=== PATIENT | male | born 1940 | race Caucasian/White ===

== ENCOUNTER 2017-04-29 07:12 | Outpatient (CLI) | payer MEDICARE, BC ==
[2017-04-29 08:09] LABS: ALT (SGPT) 21 U/L (8-55); AST (SGOT) 22 U/L (5-34); Alkaline Phosphatase 62 U/L (40-150); Anion Gap 13 mmol/L (10-20); BUN (Urea Nitrogen) 19 mg/dL (8.4-25.7); Bilirubin, Total 0.7 mg/dL (0.2-1.2); Calc. Creatinine Clearance 0 mL/min (70-130); Calcium 9.5 mg/dL (7.8-10.44); Carbon Dioxide 26 mmol/L (23-31); Cardiac Risk 4.6 (Less than 4.5); Chloride 107 mmol/L (98-107); Cholesterol 194 mg/dl (< 200 Desired); Estimated GFR-MDRD 58; Glucose 108 mg/dL (83-110); HDL Cholesterol 42 mg/dL (>60 Neg Risk); LDL Cholesterol, Calculated 121 mg/dL; Potassium 4.1 mmol/L (3.5-5.1); Sodium 142 mmol/L (136-145); Triglycerides 155 mg/dL (Less than 150)
== END 2017-04-29 07:13 | disposition home or self-care (01) ==
LOC: MADLAB 07:12
PROVIDERS: ATTEND Urology
DX: N41.0 Acute prostatitis (principal); E78.00 Pure hypercholesterolemia, unspecified
CPT/HCPCS: 36415; 80053; 80061; G0103

== ENCOUNTER 2020-06-22 12:39 | Outpatient (CLI) | payer MEDICARE, BC ==
--- NOTE | 2020-06-22 13:00 | CT ---
CT BRAIN WITHOUT CONTRAST: HISTORY:Headache FINDINGS: There are foci of decreased attenuation in the periventricular white matter, consistent with chronic small vessel ischemic disease. No evidence of acute infarct, hemorrhage, midline shift or abnormal extra-axial fluid collections is seen. The ventricular size is appropriate and the basilar cisterns are patent. The bony calvarium is intact. There is mucosal disease in the paranasal sinuses. IMPRESSION: 1. No CT evidence of acute intracranial process. 2. Paranasal sinus disease.
--- NOTE | 2020-06-22 13:30 | CT ---
CT Cervical Spine WO Con History: Neck pain without trauma Comparison: None. Findings: The visualized mandible is intact. Mucosal retention cyst of the right and left maxillary s inuses. Pterygoid plates are intact. Mastoids are relatively clear. Mild calcific plaque of both carotid bulbs. Lung apices are clear. Thyroid is unremarkable. No cervical adenopathy. No acute fracture or malalignment. Levels are as follows: C2/C3: Mild disc desiccation and height loss. Small circumferential disc osteophyte complex. Moderate right and mild left neural foraminal narrowing. C3/C4: Advanced degenerative disc space disease with large circumferential disc osteophyte complex. 2 mm retrolisthesis. The spinal canal is narrowed to approximately 6 mm. Severe right and moderate to severe left neural foraminal narrowing. C4/C5: Moderate disc desiccation and height loss. Large circumferential disc osteophyte complex. Face t joints are relatively intact. Spinal canal measures approximately 6 mm. Severe left and moderate to severe right neural foraminal narrowing. C5/C6: Moderate circumferential disc space height loss and associated disc osteophyte complex greates t in the right paracentral and left lateral recess. Spinal canal measures approximately 7 mm. Moderate to severe left and moderate right neural foraminal narrowing. C6/C7: High-grade degenerative disc space height loss. Large circumferential disc osteophyte complex. Facet joints are normal. Moderate to severe left and moderate right neural foraminal narrowing. C7/T1: Normal disc height. No neural foraminal or spinal canal narrowing. Bridging anterior osteophytes from C5-T1. No acute fracture of the cervical spine. Transverse processes are intact. Spinous processes are intac t. Extensive mucosal thickening and debris within the sphenoid sinus with associated osteitis. Impression: Advanced spondylosis throughout the cervical spine which is predominantly disc degenerati on in nature with relatively maintained facet joints. Multilevel high-grade neural foraminal narrowing and moderate spinal canal narrowing.
== END 2020-06-22 12:40 | disposition home or self-care (01) ==
LOC: MADCT 12:39
PROVIDERS: ATTEND Family Medicine
DX: R51.9 Headache, unspecified (principal); M54.2 Cervicalgia; M47.812 Spondylosis without myelopathy or radiculopathy, cervical region; M50.31 Other cervical disc degeneration, high cervical region; M48.02 Spinal stenosis, cervical region; J34.89 Other specified disorders of nose and nasal sinuses
CPT/HCPCS: 70450; 72125

== ENCOUNTER 2024-03-10 15:53 | Outpatient (CLI) | payer MEDICARE, BC | END 2024-03-10 15:54 | disposition home or self-care (01) | LOC: MADRAD 15:53 | PROVIDERS: ATTEND Nurse Practitioner Family | DX: R06.02 Shortness of breath (principal) | CPT/HCPCS: 71046 ==

== ENCOUNTER 2025-06-02 19:40 | Emergency (ER) | payer MEDICARE, BC ==
[2025-06-02 20:35] LABS: #Basophils 0.1 thou/uL (0.0-0.2); #Eosinophils 0.2 thou/uL (0.0-0.7); #Lymphocytes 1.0 thou/uL (1.20-3.40); #Monocytes 0.5 thou/uL (0.11-0.59); #Neutrophils 9.8 thou/uL (1.40-6.50); %Basophils 1.1 % (0.0-1.0); %Eosinophils 1.8 % (0.0-10.0); %Lymphocytes 8.3 % (21.0-51.0); %Monocytes 4.2 % (0.0-10.0); %Neutrophils 84.7 % (42.0-75.0); Hematocrit 38.6 % (42.0-52.0); Hemoglobin 12.1 g/dL (14.0-18.0); Mean Corpuscular Hemoglobin 28.4 pg (27.0-31.0); Mean Corpuscular Volume 90.8 fl (78.0-98.0); Platelet Count 173 10x3/uL (130-400); Red Blood Cell (RBC) Count 4.26 mill/uL (4.70-6.10); White Blood Cell (WBC) Count 11.5 10x3/uL (4.8-10.8)
[2025-06-02 20:55] LABS: ALT (SGPT) 10 U/L (Less than 45); AST (SGOT) 19 U/L (11-34); Albumin 4.0 g/dL (3.1-4.5); Alkaline Phosphatase 80 U/L (40-110); Anion Gap 16 mmol/L (10-20); BUN (Urea Nitrogen) 20 mg/dL (8.4-25.7); Bilirubin, Total 0.4 mg/dL (0.3-1.2); Calc. Creatinine Clearance 0 mL/min (70-130); Calcium 8.6 mg/dL (7.8-10.44); Carbon Dioxide 22 mmol/L (23-31); Chloride 108 mmol/L (98-107); Globulin 2.3 g/dL (2.4-3.5); Glucose 126 mg/dL (83-110); Lipase 34 U/L (8-78); Potassium 4.8 mmol/L (3.5-5.1); Sodium 141 mmol/L (136-145); Troponin I Less than 0.010 ng/mL (< 0.028)
== END 2025-06-02 21:41 | disposition home or self-care (01) ==
LOC: MADERS 19:40
DX: J01.90 Acute sinusitis, unspecified (principal); B96.89 Other specified bacterial agents as the cause of diseases classified elsewhere; Z87.891 Personal history of nicotine dependence
CPT/HCPCS: 71046; 80053; 83605; 83690; 84484; 85025; 87040; 87428; 93005; 94760

== ENCOUNTER 2025-07-01 06:44 | Outpatient (CLI) | payer MEDICARE, BC ==
[2025-07-01 07:21] LABS: ALT (SGPT) 10 U/L (Less than 45); AST (SGOT) 17 U/L (11-34); Albumin 4.0 g/dL (3.1-4.5); Alkaline Phosphatase 75 U/L (40-110); Anion Gap 15 mmol/L (10-20); BUN (Urea Nitrogen) 13 mg/dL (8.4-25.7); Bilirubin, Total 0.4 mg/dL (0.3-1.2); Calc. Creatinine Clearance 0 mL/min (70-130); Calcium 9.3 mg/dL (7.8-10.44); Carbon Dioxide 25 mmol/L (23-31); Cardiac Risk 3.5 (Less than 4.5); Chloride 108 mmol/L (98-107); Cholesterol 166 mg/dl (< 200 Desired); Globulin 2.6 g/dL (2.4-3.5); Glucose 105 mg/dL (83-110); HDL Cholesterol 48 mg/dL (>60 Neg Risk); LDL Cholesterol, Calculated 98 mg/dL; Potassium 4.5 mmol/L (3.5-5.1); Sodium 143 mmol/L (136-145); Triglycerides 102 mg/dL (Less than 150)
[2025-07-01 08:23] LABS: Hematocrit 39.5 % (42.0-52.0); Hemoglobin 11.9 g/dL (14.0-18.0); Mean Corpuscular Hemoglobin 27.6 pg (27.0-31.0); Mean Corpuscular Volume 91.6 fl (78.0-98.0); Platelet Count 214 10x3/uL (130-400); Red Blood Cell (RBC) Count 4.31 mill/uL (4.70-6.10); White Blood Cell (WBC) Count 5.5 10x3/uL (4.8-10.8)
[2025-07-01 08:55] LABS: MDiff Complete? YES; Manual Diff?? YES; Platelet Adequacy Comment Appears Adequate
[2025-07-01 13:13] LABS: Iron 40 ug/dL (65-175); Iron Binding Capacity, Total 360 mcg/dL (261-462)
== END 2025-07-01 06:45 | disposition home or self-care (01) ==
LOC: MADLAB 06:44
PROVIDERS: ATTEND Nurse Practitioner Family
DX: D50.0 Iron deficiency anemia secondary to blood loss (chronic) (principal); I10 Essential (primary) hypertension
CPT/HCPCS: 36415; 80053; 80061; 82728; 83540; 83550; 85025